=== PATIENT | male | born 2000 | race Two or more races ===

== ENCOUNTER 2024-10-22 20:45 | Emergency (ER) | payer OTHER ==
[~2024-10-22] VITALS: Ht 172.7 cm; Wt 72.6 kg
[2024-10-22] MEDS ORDERED: HYDROCODONE/CHLORPHEN P-STIREX 5 ML ML PO STA (21:13)
[2024-10-22 21:32] LABS: HEMATOCRIT 47.9 % (39.0-48.0); HEMOGLOBIN 17.3 g/dL (13-16.00); MEAN CELL VOLUME 79.3 fL (80.0-100.00); MEAN CORPUSCULAR HEMOGLOBIN 28.7 pg (27.00-32.0); MEAN CORPUSCULAR HGB CONC 36.2 g/dl (32.0-36.0); PLATELET COUNT 142 K/uL (150-450); RED BLOOD COUNT 6.04 M/uL (4.00-6.00); RED CELL DISTRIBUTION WIDTH 14.5 % (11.5-14.5)
[2024-10-24] MEDS ORDERED: ACETAMINOPHEN 500 MG GEL..CAP PO ONE (00:32)
[2024-10-24] MEDS ORDERED: FAMOTIDINE/PF 20 MG/2 ML VIAL ONE (03:14)
== END 2024-10-22 22:19 | disposition home or self-care (01) ==
LOC: ER 20:47
DX: J10.1 Influenza due to other identified influenza virus with other respiratory manifestations (principal); Z20.822 Contact with and (suspected) exposure to COVID-19

== ENCOUNTER 2024-10-24 00:02 | Emergency (ER) | payer OTHER ==
[~2024-10-24] VITALS: Ht 172.7 cm; Wt 72.6 kg
[2024-10-24] MEDS ORDERED: FAMOTIDINE/PF 20 MG/2 ML VIAL IV PUSH STA (03:09)
[2024-10-24] MEDS ORDERED: ZYNCOF 20-400120 ML PO (03:16)
[2024-10-24] MEDS ORDERED: PEPCID40 MG PO (03:16)
[2024-10-24] MEDS ORDERED: ZOFRAN8 MG PO (03:16)
== END 2024-10-24 04:05 ==
LOC: ER 00:05
DX: K29.70 Gastritis, unspecified, without bleeding (principal); R11.10 Vomiting, unspecified